=== PATIENT | female | born 1980 | race Caucasian/White ===

== ENCOUNTER 2023-11-02 19:15 | Emergency (ER) | payer SELFPAY ==
[2023-11-02 19:29] VITALS: BP 124/88; PULSE 74; TEMP 36.7; O2SAT 97; BMI 42.1
--- NOTE | 2023-11-02 19:36 | XR_ITS ---
The [address] [address] Patient Name: SUSAN NESS MRN: [id number] date: 1980 Sex: F Assigned Patient Location: ER Current Patient Location: ED.MAIN Accession/Order Number: [id number] Exam Date: 11/02/2023 19:50 Report Date: 11/02/2023 20:27 At the request of: BEATA BALDERAS Procedure: XR foot RT min 3V IMAGES REVIEWED: XR foot RT min 3V COMPARISON: None available. CLINICAL INDICATION: pain 5th MT base and heel FINDINGS/IMPRESSION: 1. No evidence of acute osseous abnormality of the right foot. 2. Small-moderate plantar calcaneal spur. 3. Unremarkable fifth metatarsal base. Electronically authenticated by: LULA THAPA Date: 11/02/2023 20:27
--- NOTE | 2023-11-02 19:37 | ED.EXTPRO1 ---
HPI - Extremity Problem General Chief complaint: Extremity Problem, Nontraumatic Stated complaint: Foot Pain Time Seen by Provider: 11/02/23 19:29 Source: patient Mode of arrival: walk-in Limitations: no limitations History of Present Illness HPI Narrative: Patient is a 43-year-old female presents to the ER with concerns of worsening heel pain and pain to the lateral aspect of her foot. Patient works as a health aide, states symptoms have been present for 2 months. She does not have insurance and did not attempt to see a specialist. Patient took Aleve this morning at 730 with minimal relief. She has been using a ice ball massage and plantar fasciitis ankle/arch brace with minimal relief. Patient appears nontoxic in no acute distress. She denies any known injury. Both areas of her foot became painful around the same time. MD Complaint: Reports extremity pain Location: Reports right Relieving factors: Reports nothing Related Data Previous Rx's ?Medication ?Instructions ?Recorded ibuprofen 600 mg tablet 600 mg PO TID PRN pain #30 tabs 11/02/23 Allergies Allergy/AdvReac Type Severity Reaction Status Date / Time No Known Drug Allergies Allergy Verified 11/02/23 19:29 Review of Systems ROS Constitutional Denies: fever or chills Ears, nose, mouth, and throat Denies: throat pain or neck pain Cardiovascular Denies: chest pain Gastrointestinal Denies: abdominal pain or nausea Musculoskeletal Reports: extremity pain (right and foot.); Denies: back pain or neck pain Integumentary/Breast Denies: rash Neurological Denies: headache Psychiatric Denies: anxiety Hematologic/Lymphatic Denies: easy bruising PFSH PFSH Social History Little interest or pleasure in doing things: not at all Feeling down, depressed, or hopeless: not at all Exam Narrative Exam Narrative: Vital signs reviewed and nurse's notes. The patient is not hypoxic. General: Alert, no acute distress, patient resting comfortably Skin: warm, intact, no pallor noted Head: Normocephalic, atraumatic Eye: Normal conjunctiva, no exudates Respiratory: No acute distress, lungs CTA Musculoskeletal: No evidence of deformity to right foot. There is no swelling. There is no ecchymosis. No erythema or warmth noted. DP and PT pulses are intact 2+. Normal sensation, normal capillary refill less than 2 seconds. There is no cyanosis or mottling noted. The patient has tenderness to the heel of right foot, plantar aspect medial tubercule. Also point tender 5th MT base. The patient was able to flex and extend without pain.. Patient was able to extend leg off the cart without difficulty. No tenderness noted to the midfoot, ankle or proximal fibular area. There is no pain with calcaneal squeeze, achilles tendon is intact and no defect is palpated. The patient has no pelvic instability. The patient has no shortening or rotation noted to the bilateral lower extremities. Neurological: alert and orient x4, normal sensory and motor observed. Psychiatric: Cooperative Constitutional Vital Signs, click to edit/add: Last Vital Signs Temp 98.1 F 11/02/23 19:29 Pulse 74 11/02/23 19:29 Resp 18 11/02/23 19:29 BP 124/88 11/02/23 19:29 Pulse Ox 97 11/02/23 19:29 O2 Del Method Room Air 11/02/23 19:29 Course Vital Signs Vital signs: Vital Signs Temperature 98.1 F 11/02/23 19:29 Pulse Rate 74 11/02/23 19:29 Respiratory Rate 18 11/02/23 19:29 Blood Pressure 124/88 11/02/23 19:29 Pulse Oximetry 97 11/02/23 19:29 Oxygen Delivery Method Room Air 11/02/23 19:29 Temperature 98.1 F 11/02/23 19:29 Pulse Rate 74 11/02/23 19:29 Respiratory Rate 18 11/02/23 19:29 Blood Pressure 124/88 11/02/23 19:29 Pulse Oximetry 97 11/02/23 19:29 Oxygen Delivery Method Room Air 11/02/23 19:29 MDM - Extremity (Nontraumatic) MDM Narrative Medical decision making narrative: Patient notes pain for 2 months, symptoms better with walking, worse with first waking in the morning and after seated break. Recommend home exercises for plantar fasciitis stretching. Patient wearing good shoes at present time. X-ray will be performed given pain to fifth metatarsal base rule out occult stress fracture. She will be given local podiatry to follow-up to discuss additional treatment meds given her conservative measures. Preliminary review of three-view right foot x-ray shows no acute fracture, mild heel spur. Normal alignment no soft tissue swelling. The patient is to followup with primary care physician in next 2-3 days or to return to the emergency department should any of the signs or symptoms worsen or new symptoms develop. Patient had questions answered. The patient agrees with the following Diagnosis and Treatment plan and the patient will be discharged home. SHARED APC VISIT, PHYSICIAN ATTESTATION: [id number] I performed a substantive part of the MDM during the patient?s E/M visit. I personally evaluated and examined the patient. I personally made or approved the documented management plan and acknowledge its risk of complications. My (EKG/X-Ray/US/CT) interpretation . Management/test interpretation discussed with . Discharge Plan Discharge Chief Complaint: Extremity Problem, Nontraumatic Clinical Impression: Plantar fasciitis of right foot Patient Disposition: Home, Self-Care Time of Disposition Decision: 20:14 Condition: Good Prescriptions / Home Meds: New ibuprofen 600 mg tablet 600 mg PO TID PRN (Reason: pain) Qty: 30 0RF Print Language: Amharic Instructions: Plantar Fasciitis (ED), Plantar Fasciitis Exercises (ED) Referrals: David Jay DPM [Physician] - As soon as possible
[2023-11-02] MEDS: IBUPROFEN 600 MG TABLET PO (19:52)
== END 2023-11-02 20:20 | disposition home or self-care (01) ==
PROVIDERS: Emergency Provider Emergency Medicine
DX: M72.2 Plantar fascial fibromatosis (principal)
CPT/HCPCS: 73630; 99283